=== PATIENT | male | born 1945 | race Caucasian/White ===

== ENCOUNTER 2018-11-27 01:28 | Inpatient (IN) ==
--- OUTSIDE RECORDS SUMMARY | 2018-11-27 05:27 | External Medical Summary | Continuity of Care Document ---
:1945 Author Name Kristine Lopez, Provider Address Unavailable Unavailable , Care Team Providers Name Role Phone Unavailable Unavailable Unavailable Problems Arthritis (716.90) (M19.90) Hypercholesterolemia (272.0) (E78.00) Pure hypercholesterolemia (272.0) (E78.00) Testicular pain (608.9) (N50.819) Glaucoma (365.9) (H40.9) Hypertension (401.9) (I10) Post-void dribbling (788.35) (N39.43) Constipation (564.00) (K59.00) Benign localized prostatic hyperplasia w ith lower urinary tract symptoms (LUTS) (600.21) (N40.1) Gout (274.9) (M10.9) Allergies and Adverse Reactions Anti-Inflammatory Enzyme CAPS (Allergy) Reaction: Nausea predniSONE TABS (Allergy) Medications Flax Seed Oil CAPS , M.D. Refills: 0 Fish Oil CAPS , M.D. Refills: 0 Multiple Vitamins TABS , M.D. Refills: 0 Aspirin 81 MG TABS , M.D. Refills: 0 Lumigan SOLN , M.D. Refills: 0 Lopressor TABS , M.D. Refills: 0 Protonix 20 MG Oral Tablet Delayed Release , M.D. Refills: 0 Lipitor TABS , M.D. Refills: 0 Cymbalta 60 MG Oral Capsule Delayed Release Particles , M.D. Refills: 0 Procedures History of Colostomy Status: Completed History of Colostomy Revision Status: Co mpleted History of Hemorrhoidectomy Status: Comp leted History of Incisional Hernia Repair Stat us: Completed History of Surgery Excision Of Spermatocele With Epididymect juan Status: Completed History of Surgery Scrotum Excision Of Lesion Status: Completed History of Laser Vaporization With Transurethral Resection O f Status: Completed Prostate History of Surgery Vas Deferens Vasectomy Status: Completed History of CABG Status: Completed History of PTCA Status: Completed Immunizations Immunizations not documented Family History Unknown Family Member Family history of Cancer Status: Active Comments: Famil y History Family history of Nephrolithiasis Status: Active Commen ts: Family History Family history of Hypertension (V17.49) Status: Active Comments: Family History Family history of Heart Disease (V17.49) Status: Active Comments: Family History Social History - Smoking Status Smoker. current status unknown Plan of Treatment Planned Observations Planned Goals not documented Results No Known Results Results not documented
[2018-11-27] MEDS ORDERED: ACETAMINOPHEN 325 MG TAB PO PRN (05:57)
[2018-11-27] MEDS ORDERED: MULTI-VITAMIN INFUSION 10 ML, THIAMINE HCL 100 MG, FOLIC ACID 1 MG in SODIUM CHLORIDE 0... IV SCH (06:45)
[2018-11-27 06:46] LABS: Appearance Urine Clear (Clear); Bilirubin Urine Negative (Negative); Color Urine Yellow; Glucose Urine UA Negative (Negative); Ketones Urine Negative (Negative); Leukocyte Esterase Urine Negative (Negative); Nitrite Urine Negative (Negative); Protein Urine Negative (Negative); Specific Gravity Urine 1.021 (1.000-1.030); Urobilinogen Urine Negative (Negative)
[2018-11-27 06:53] LABS: Basophils % (auto) 0.8 %; Eosinophils # (auto) 0.04 K/uL (0-0.5); Eosinophils % (auto) 0.3 %; Hematocrit (blood only) 35.4 % (42-52); Hemoglobin 12.3 g/dL (14.0-18.0); Immature Granulocytes # (auto) 0.21 K/uL (0.00-0.02); Immature Granulocytes % (auto) 1.8 %; Lymphocytes # (auto) 0.77 K/uL (1.2-3.4); Lymphocytes % (auto) 6.4 %; Mean Corpuscular Hgb Conc 34.7 g/dL (32-36); Mean Corpuscular Volume 96.5 fL (80-100); Mean Platelet Volume 9.5 fL (7.4-10.4); Monocytes # (auto) 0.91 K/uL (0.11-0.59); Monocytes % (auto) 7.6 %; Neutrophils # (auto) 9.97 K/uL (1.4-6.5); Neutrophils % (auto) 83.1 %; Platelet Count 317 K/uL (130-400); RDW Coefficient of Variation 16.2 % (11.5-14.5); RDW Standard Deviation 56.2 fL (36.4-46.3); Red Blood Count 3.67 M/uL (4.7-6.1)
[2018-11-27 07:03] LABS: Prothrombin Time 10.6 Seconds (9.0-12.0)
[2018-11-27] MEDS: MoRPHine SULFATE 4 MG/ML 1 ML CARP\\VIAL IV PRN ×2 (07:08→23:32)
--- NOTE | 2018-11-27 07:11 | XRay Report ---
XR hip RT 2-3V w pelvis CLINICAL HISTORY: hip fracture. Right hip pain. COMPARISON STUDY: None. FINDINGS: Comminuted and displaced right femoral intertrochanteric fracture. No dislocation. The visu alized pelvic bones and left hip are intact. Posterior fusion hardware noted within the lower lumbar spine. IMPRESSION: Comminuted and displaced right femoral intertrochanteric fracture. Electronically signed by: Ubaldo Calderon M.D. 11/27/2018 7:10 AM
[2018-11-27] MEDS: METOPROLOL TARTRATE 50 MG TAB PO SCH ×2 (07:14→19:38)
[2018-11-27] MEDS: ATORVASTATIN 20 MG TAB PO SCH ×2 (07:14→19:39)
[2018-11-27] MEDS: PANTOprazole 40 MG TAB PO SCH ×2 (07:14→19:40)
--- NOTE | 2018-11-27 07:25 | History & Physical Report ---
Date of Service November 27, 2018 Assessment & Plan (1) Hip fracture: 73 y/o M Hx RA, CAD, HTN, HLD, smoker, alcohol abuse. Pt suffered a mechanical fall onto his R side sustaining an intertrochanteric fracture. He was initially at [facility], however, they do not currently have an orthopedic ser vice so that he was transferred to [facility]. He c/o hip pain on arrival. He denies symptoms or intoxication preceding his fall. 1) Hip fracture - orthopedics consulted - analgesics provided, IVF, NPO. The pt is technically high-risk for surgery although he underwent a procedure 11/2017. I do not believe he merits additional cardiovascular workup at present. A baseline EKG is pending. 2) CAD - no evidence of ACS - cont B david Statin 3) RA - unclear if this iis treated presently 4) Suspected ETOH abuse - denies prior withdrawal 5) HTN/HLD - Atorvastatin, Metoprolol. Present on Admission?: Yes History of Present Illness Chief Complaint: R hip fracture Primary Care Provider: Dhruv Howe 73 y/o M Hx RA, CAD, HTN, HLD, smoker, alcohol abuse. Pt suffered a mechanical fall onto his R side sustaining an intertrochanteric fracture. He was initially at [facility], however, they do not currently have an orthopedic service so that he was transferred to [facility]. He c/o hip pain on arrival. He denies symptoms or intoxication preceding his fall. 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 Surgical: 1) L total shoulder 2017 2) Multiple abdominal surgeries and a colostomy 3) CABG Social: Reports over 3 drinks per day, smokes 1 pack daily Family: Adopted/unknown Allergies Allergy/AdvReac Type Severity Reaction Status Date / Time No Known Allergies Allergy Unverified 12/13/17 12:32 Home Medications Home Medications Medication Instructions Recorded Confirmed Type BIMATOPROST (LUMIGAN) 1 drp OPHTHALMIC (EYE) HS 30 Days 10/28/17 11/27/18 History #2.5 ml Metoprolol Tartrate (Lopressor) 50 mg PO BID #0 tab 10/28/17 11/27/18 History (Lopressor) Pantoprazole (Protonix) 40 mg PO BID #0 tab 10/28/17 11/27/18 History OXYCODONE/ACETAMINOPHEN 5MG/325MG 1 - 2 tabs PO Q4H PRN #60 tab 12/14/17 11/27/18 Rx (PERCOCET 5MG/325MG) atorvastatin 20 mg PO DAILY 11/27/18 11/27/18 History Past Med/Surg History Social History Preferred Language: Swazi Communication Ability: Effective 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 Beliefs That Will Affect Care: None Current Living Situation: Spouse Current Living Situation Comment: House Feels Safe at Home: Hesitant to Answer Safety Concerns: Afraid for Self Smoking Status: Current every day smoker Tobacco Type: cigarettes Cigarettes Per Day: 20 Do You Dip or Chew Tobacco: No Second Hand Exposure: No Hx Alcohol Use: Yes Alcohol type: hard liquor Hx Substance Use: No Review of Systems Review of Systems: Gen: Denies fevers, night sweats, rigors, fatigue, malaise, weight loss/gain ENT: Denies congestion, throat pain, hearing loss Eyes: Denies acute visual changes CV: Denies CP, palpitations Pulmonary: Denies SOB, cough, wheezing GI: Denies N/V, diarrhea, constipation Neuro: Denies acute or unilateral weakness, acute gait impairment, headache or acute visual changes Musculoskeletal: R hip rangel as above Endocrine: Denies polydipsia, polyuria Skin: Denies acute rashes or ulcers Physical Exam Physical Exam: General: AAO x 3, no distress ENT: No erythema or exudates, no thrush Eyes: RACHID, EOMI Head and neck: Normocephalic, atraumatic, No JVD, neck is supple. Chest/heart: Nontender, S1,2, RRR, no murmurs, no gallops Lungs: CTAB, no wheezing or crackles Abdomen: Nontender, nondistended, BS+ Neuro: AAO x 3, speech is clear, no unilateral weakness or loss of sensation, coordination intact Musculoskeletal: Shortened/externally rotated RLL Skin: No acute rashes or ulcers Extremities: No clubbing, cyanosis, edema Results & Data Vital Signs (Past 12 Hours) Vital Signs Temp Pulse Pulse Pulse Resp BP Pulse Ox 11/27/18 06:29 97.3 F L 84 18 152/86 H 96 11/27/18 05:48 85 11/27/18 05:37 97.3 F L 85 18 147/88 H 95 Pulse Ox 11/27/18 06:29 96 11/27/18 05:48 11/27/18 05:37
[2018-11-27] MEDS ORDERED: BISACODYL 10 MG SUPP PR PRN ×2 (07:26→14:59)
[2018-11-27] MEDS ORDERED: NALOXONE HCL 0.4 MG/1 ML VIAL/CARP IV PRN ×2 (07:26→14:59)
[2018-11-27] MEDS ORDERED: MAGNESIUM HYDROXIDE SUSP 30 ML UDC PO PRN ×2 (07:26→14:59)
[2018-11-27 07:29] LABS: Albumin Level 2.9 gm/dl (3.4-5.0); BUN Creatinine Ratio 22.2 (10-20); Calcium 8.2 mg/dl (8.5-10.1); Creatinine Clr Calc Pharmacy 136.5 ml/min; Est GFR (African American) 127.4; Est GFR (Non-African American) 109.9; Potassium 3.7 mmol/L (3.5-5.1)
[2018-11-27 07:32] LABS: Albumin Globulin Ratio 0.8 (0.9-2); Bilirubin,Total 0.4 mg/dl (0.2-1); Globulin 3.5 gm/dl (2.5-4.0); Total Protein 6.4 gm/dl (6.4-8.2)
[2018-11-27] MEDS ORDERED: D5W AND LACTATED RINGERS 1,000 ML IV SCH (07:45)
[2018-11-27] MEDS ORDERED: LORazepam 1 MG/2 ML VIAL IV PRN (08:50)
--- NOTE | 2018-11-27 08:50 | Orthopedic Consultation ---
Date of Consultation November 27, 2018 Assessment & Plan (1) Hip fracture: npo. Plan for long IM nailing of right hip/femur today with Dr. Sinclair. Procedure explained including risk and benefits to surgery. Consent obtained. This was discussed with his Venita as well. History of Present Illness Reason for Consultation: Right hip pain, fracture Attending Physician: Addy Magaña MD History of Present Illness Flaquito is a 73 y/o male transferred from [facility] with a right intertroch fx. He fell yesterday, landing on his right side. He's unsure exactly how or why but did say he gets dizzy at times. He had some preexisting hip/leg pain as he has a history of RA. No other m/s complaints at this time. PMH reviewed and please refer to H & P. Allergies Allergy/AdvReac Type Severity Reaction Status Date / Time No Known Allergies Allergy Unverified 12/13/17 12:32 Home Medications Home Medications Medication Instructions Recorded Confirmed Type BIMATOPROST (LUMIGAN) 1 drp OPHTHALMIC (EYE) HS 30 Days 10/28/17 11/27/18 History #2.5 ml Metoprolol Tartrate (Lopressor) 50 mg PO BID #0 tab 10/28/17 11/27/18 History (Lopressor) Pantoprazole (Protonix) 40 mg PO BID #0 tab 10/28/17 11/27/18 History OXYCODONE/ACETAMINOPHEN 5MG/325MG 1 - 2 tabs PO Q4H PRN #60 tab 12/14/17 11/27/18 Rx (PERCOCET 5MG/325MG) atorvastatin 20 mg PO DAILY 11/27/18 11/27/18 History Patient History Social History Preferred Language: Qatari Communication Ability: Effective 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 He was confused as to which day of the week it is. No pain with ROM of BUE. He has some pain with motion of left leg/hip but has had this before from RA and no change. RLE is shortened and externally rotated. NVI. DF/PF appropriately. Results & Data Vital Signs (Past 12 Hours) Vital Signs Temp Pulse Pulse Pulse Resp BP Pulse Ox 11/27/18 07:17 93 H 18 159/86 H 96 11/27/18 06:29 36.3 C L 84 18 152/86 H 96 11/27/18 05:48 85 11/27/18 05:37 36.3 C L 85 18 147/88 H 95 Pulse Ox 11/27/18 07:17 11/27/18 06:29 96 11/27/18 05:48 11/27/18 05:37 Diagnostic Findings xrays show comminuted displaced intertroch fx of right hip
--- NOTE | 2018-11-27 11:51 | Anesthesiology Consultation ---
Date of Service November 27, 2018 Assessment & Plan Chart Review Chart Review: Acceptable Risk for Surgery Consults Requested none History Surgery Operation Date: 11/27/18 12:30 Proposed Procedures p Right Long Troch Nail - Johnny Sinclair MD Height/Weight Height: 5 ft 9 in Weight: 69.8 kg Allergies Allergy/AdvReac Type Severity Reaction Status Date / Time No Known Allergies Allergy Unverified 12/13/17 12:32 Medications Home Medications Medication Instructions Recorded Confirmed Last Taken BIMATOPROST (LUMIGAN) 1 drp OPHTHALMIC (EYE) HS 30 Days 10/28/17 11/27/18 Unknown #2.5 ml Metoprolol Tartrate (Lopressor) 50 mg PO BID #0 tab 10/28/17 11/27/18 Unknown (Lopressor) Pantoprazole (Protonix) 40 mg PO BID #0 tab 10/28/17 11/27/18 Unknown OXYCODONE/ACETAMINOPHEN 5MG/325MG 1 - 2 tabs PO Q4H PRN #60 tab 12/14/17 11/27/18 Unknown (PERCOCET 5MG/325MG) atorvastatin 20 mg PO DAILY 11/27/18 11/27/18 Unknown Active Medications Generic Name Dose Route Start Last Admin Trade Name Freq PRN Reason Stop Dose Admin Atorvastatin Calcium 20 mg 11/27/18 09:00 11/27/18 07:14 Lipitor PO 12/27/18 08:59 20 mg DAILY BECCA Administration Dextrose/Lactated Ringer's 1,000 mls @ 80 mls/hr 11/27/18 07:45 11/27/18 09:21 D5w And Lactated Ringers IV 11/27/18 20:14 80 mls/hr .[id number] BECCA Administration Metoprolol Tartrate 50 mg 11/27/18 09:00 11/27/18 07:14 Lopressor PO 12/27/18 08:59 50 mg BID BECCA Administration Morphine Sulfate 4 mg 11/27/18 06:15 11/27/18 07:08 Morphine Sulfate IV 12/11/18 06:14 4 mg Q4H PRN Administration Pain Pantoprazole Sodium 40 mg 11/27/18 09:00 11/27/18 07:14 Protonix PO 12/27/18 08:59 40 mg BID BECCA Administration NPO Date Last Intake of Fluids: 11/27/18 Time Last Intake of Fluids: 07:00 Last Intake of Fluids Comment: sips with medications Social History Smoking Status: Current every day smoker tobacco type: cigarettes Smoking cigarettes per day: 20 Do You Dip or Chew Tobacco: No Hx Alcohol Use: Yes Alcohol type: hard liquor alcohol intake frequency: 3 or more drinks per day Alcohol Intake Frequency Comment: 5 rum drinks per day Hx Substance Use: No Physical Exam Vital Signs Last Vital Signs Temp 36.9 C 11/27/18 10:28 Pulse 71 11/27/18 10:28 Resp 16 11/27/18 10:28 BP 176/95 H 11/27/18 10:28 Pulse Ox 96 11/27/18 10:28
[2018-11-27] MEDS ORDERED: CEFAZOLIN 2000MG 2,000 MG/15 ML SYR IV ONE (11:56)
[2018-11-27] MEDS ORDERED: ePHEDrine sulfate 50 MG/ML AMP IV PRN (11:58)
[2018-11-27] MEDS ORDERED: ATROPINE SULFATE 0.1 MG/ML 10ML SYR IV PRN (11:58)
[2018-11-27] MEDS ORDERED: MIDAZOLAM HCL 1 MG/ML 2ML VIAL ONE (11:58)
[2018-11-27] MEDS ORDERED: CEFAZOLIN 2,000 MG/15 ML IV PUSH IV ONE (11:58)
[2018-11-27] MEDS ORDERED: LIDOCAINE HCL 2% 2 ML VIAL/AMP(20MG/ML) INFIL ONE (11:58)
[2018-11-27] MEDS ORDERED: ONDANSETRON INJ 2 MG/ML 2 ML VIAL ONE (11:58)
[2018-11-27] MEDS ORDERED: fentaNYL citrate 100 MCG/2 ML VIAL IV PRN (11:58)
[2018-11-27] MEDS ORDERED: DEXAMETHASONE SOD INJ 4 MG/ML VIAL IV PRN (11:58)
[2018-11-27] MEDS ORDERED: ONDANSETRON INJ 2 MG/ML 2 ML VIAL IV PRN ×2 (11:58→14:59)
[2018-11-27] MEDS ORDERED: PROPOFOL IV EMULSION 10 MG/ML 20 ML VIAL IV ONE (11:58)
[2018-11-27] MEDS ORDERED: fentaNYL citrate 100 MCG/2 ML VIAL ONE ×2 (11:58→12:47)
[2018-11-27] MEDS ORDERED: HYDROmorphone INJ 2 MG/ML SYR/VIAL IV PRN (11:58)
[2018-11-27] MEDS ORDERED: BUPIVACAINE/EPINEPHRINE 0.5% MPF 1:200,000 30 ML VIAL ONE (12:01)
--- NOTE | 2018-11-27 12:10 | History & Physical Bridge Note ---
Date of Service November 27, 2018 History & Physical Bridge Note I have examined the patient, reviewed the History & Physical and in the interval since the performance of the History & Physical I have noted the following changes of clinical significance: no changes noted
[2018-11-27] MEDS ORDERED: DEXAMETHASONE SOD INJ 4 MG/ML VIAL ONE (12:38)
[2018-11-27] MEDS ORDERED: LARYING-O-JET KIT (LTA) ONE (12:38)
[2018-11-27] MEDS ORDERED: ROCURONIUM BROMIDE 10 MG/ML 5 ML VIAL ONE (12:38)
[2018-11-27] MEDS ORDERED: ePHEDrine sulfate 50 MG/ML SYR ONE (13:02)
[2018-11-27] MEDS ORDERED: PHENYLEPHRINE 100MCG/ML 5ML SYR ONE (13:02)
[2018-11-27] MEDS ORDERED: NEOSTIGMINE METHYLSULFATE 5 MG/5 ML SYR ONE (13:07)
[2018-11-27] MEDS ORDERED: GLYCOPYRROLATE 0.2 MG/ML VIAL ONE (13:07)
--- NOTE | 2018-11-27 13:21 | Post Operative Brief Note ---
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
--- NOTE | 2018-11-27 13:26 | Fluoroscopy Report ---
FL femur RT 2V CLINICAL HISTORY: RIGHT TROCH NAIL COMPARISON STUDY: 11/27/2018 FLUOROSCOPY TIME: 62 seconds. NUMBER OF FLUOROSCOPIC IMAGES: 4 FINDINGS: 4 intraoperative fluoroscopic spot images demonstrate internal fixation of an intertrochant darryl right hip fracture with a femoral neck nail and interlocking intramedullary roger. The lesser troc hanteric fragment is mildly displaced. IMPRESSION: Intraoperative fluoroscopic spot images demonstrating an internally fixated intertrochan teric right hip fracture Electronically signed by: Coy Cabrera M.D. 11/27/2018 1:24 PM
--- NOTE | 2018-11-27 14:11 | Anesthesiology Progress Note ---
Date of Service November 27, 2018 Anesthesia Post Procedure Vital Signs Vital Signs: Temp Pulse Pulse Pulse Resp BP BP 11/27/18 14:05 36.5 C 86 18 166/87 H 11/27/18 13:55 87 18 146/98 H 11/27/18 13:45 89 20 168/96 H 11/27/18 13:35 92 H 20 170/107 H 11/27/18 13:28 36.0 C L 89 20 175/102 H 11/27/18 10:28 36.9 C 71 16 176/95 H 11/27/18 07:17 93 H 18 159/86 H 11/27/18 06:29 36.3 C L 84 18 152/86 H 11/27/18 05:48 85 11/27/18 05:37 36.3 C L 85 18 147/88 H Pulse Ox Pulse Ox 11/27/18 14:05 95 11/27/18 13:55 96 11/27/18 13:45 98 11/27/18 13:35 99 11/27/18 13:28 99 11/27/18 10:28 96 11/27/18 07:17 96 11/27/18 06:29 96 96 11/27/18 05:48 11/27/18 05:37 95 Pain Intensity Right Leg: Pain Intensity: 9 Transfer of Care Handoff Completed per policy Notes Mental Status: alert / awake / arousable and participated in evaluation Patient Amnestic to Procedure: Yes Nausea / Vomiting: adequately controlled Pain: adequately controlled Airway Patency, RR, SpO2: stable & adequate BP & HR: stable & adequate Hydration State: stable & adequate Anesthetic Complications: no major complications apparent
[2018-11-27] MEDS ORDERED: HYDROmorphone INJ 0.5 MG/0.5 ML SYR IV PRN (14:59)
[2018-11-27] MEDS ORDERED: OXYCODONE HCL IR 5 MG TAB (IMMEDIATE RELEASE) PO PRN (14:59)
--- NOTE | 2018-11-27 15:10 | Operative Report ---
DATE OF OPERATION: 11/27/2018 SURGEON: Johnny Sinclair MD MECHANICAL ADJUSTER: JERRY Goodrich PREOPERATIVE DIAGNOSIS: Right displaced comminuted intertrochanteric hip fracture. POSTOPERATIVE DIAGNOSIS: Right displaced comminuted intertrochanteric hip fracture. PROCEDURE PERFORMED: Right long cephalomedullary nailing of a right intertrochanteric hip fracture. COMPLICATIONS: None. ESTIMATED BLOOD LOSS: 25 mL. FLUID REPLACEMENT: 700 mL crystalloid fluid replacement. ANESTHESIA: General. SPECIMENS: None. OPERATIVE INDICATIONS: The patient is a 73-year-old gentleman with multiple comorbidities including underlying rheumatoid disease, who sustained a fall yesterday. The exact mechanism was not quite clear. He says he just fell. He had acute onset of pain and could not walk, previously taken to [facility] and then transferred here for orthopedic care. The patient was admitted by the hospitalist service, medically optimized and indicated for surgical management. OPERATIVE IMPLANTS: Operative implants consisted of: 1. A Synthes right 360 mm x 11 mm long trochanteric nail. 2. A 100 mm helical blade. 3. A 5.0 x 46 mm distal interlocking screw. OPERATIVE PROCEDURE: The patient was taken to the operating room, identified and placed on the operative table in supine position. All contact areas were appropriately padded. IV antibiotics were provided by anesthesia team. General anesthetic was implemented at the patient's request. The patient was then placed on the fracture table. The right leg was placed in boot traction and the left leg was placed in a well-leg ramsey. I applied some longitudinal traction to the right leg and internally rotated the foot, so the kneecap pointed to the ceiling. X-ray was brought in. Fracture was anatomically reduced. The right hip was then scrubbed with Hibiclens and then prepped with ChloraPrep and draped in usual sterile fashion. A slightly curvilinear incision was made just proximal to tip of the trochanter. Sharp dissection was carried through subcutaneous tissues down to the level of the gluteal fascia. The gluteal fascia was incised longitudinally in line with skin incision. I then placed the guidewire just lateral to the tip of trochanter and in line with the IM canal in both the AP and lateral planes. I advanced this down the canal under fluoroscopic guidance. Position was verified. I overreamed this with a 17 mm reamer. I then removed this guidewire. A ball-tipped guidewire was placed down the IM canal. Nail length was measured and a 360 mm nail was selected. I did ream over the guidewire with a 12 mm followed by a 12.5 mm reamer which did get cortical purchase. I then placed an 11 mm x 360 mm right long trochanteric nail over the guidewire and the guidewire was removed. I tapped this into position. The lateral aiming arm was attached. A stab incision was made and the lateral aiming arm was advanced to the lateral aspect of the femur. A guidewire was placed in the central aspect of the femoral head and neck in both the AP and lateral planes under fluoroscopic guidance. I then measured and a 100 mm helical blade was selected. The cortical drill was used to breach the cortex and a triple reamer was set at 100 and the guidewire was overreamed. A 100 mm helical blade was tapped into position. The proximal set screw was tightened and then we did remove the proximal aiming device. Attention was then drawn toward distal fixation. Using the perfect kaw technique, we passed a screw through the distal interlocking hole. Perfect circles were obtained. A stab incision was made. A drill bit was then used to create the hole and a 46 mm x 5.0 mm screw was placed in the distal aspect of the dynamic interlocking hole. Some final x-rays were obtained. Attention was then drawn toward closing. All wounds were irrigated with copious amounts of normal saline. I did inject with 30 mL of 0.5% Marcaine with epinephrine. The gluteal fascia was then closed with #1 Vicryl suture in running fashion. The subcutaneous tissues of all wounds were closed with #2 Dexon suture in a buried interrupted fashion. Skin was then closed with skin tucker. Leg was then cleaned, dried and a sterile dressing of Xeroform, 4 x 4's, sterile ABD pad and foam tape was applied. The patient then taken off of fracture table and put on the transfer cart. He was brought out of general anesthesia and transferred to the recovery room in stable condition. The patient tolerated the procedure well with no complications. All needle and sponge counts were correct at the end of the operation. I attest to the content of the Intraoperative Record and any orders documented therein. Any exception s are noted below.
--- NOTE | 2018-11-27 19:32 | History & Physical Bridge Note ---
Date of Service November 27, 2018 History & Physical Bridge Note I have examined the patient, reviewed the History & Physical and in the interval since the performance of the History & Physical I have noted the following changes of clinical significance: Pt had hip repair. Seen afterwards. He is having pain in the right groin. Denies chest pain or SOB. Reports he drinks 4-5 mixed liquor drinks nightly each with 2 oz of liquor. Denies a h/o alcohol withdrawal previously and has gone months without drinking in the past. No h/o seizures. NAD, AAOx3 RRR no mgr CTAB no wcr Rt hip with dressing in place 2+ DP pulses bilat Right hip fracture, EtOH abuse, h/o CAD s/p CABG, HTN, DM -continue current care -ativan prn withdrawal, banana bag daily x 3 days -continue ASA, statin,metoprolol for CAD, watch for signs of perioperative CA
[2018-11-27] MEDS: ASPIRIN 81 MG ECTAB PO SCH (19:39)
[2018-11-27] MEDS: SENNA 8.6 MG TAB PO SCH ×2 (19:39→19:49)
[2018-11-27] MEDS: DOCUSATE SODIUM/SENNA 50/8.6MG TAB PO SCH ×2 (19:40→19:49)
[2018-11-27] MEDS: OXYCODONE HCL IR 5 MG TAB (IMMEDIATE RELEASE) PO PRN (19:47)
[2018-11-27] MEDS: CEFAZOLIN 1000MG 1,000 MG/7.5 ML SYR IV SCH (22:11)
[2018-11-28] MEDS: OXYCODONE HCL IR 5 MG TAB (IMMEDIATE RELEASE) PO PRN ×5 (02:58→20:52)
[2018-11-28] MEDS: CEFAZOLIN 1000MG 1,000 MG/7.5 ML SYR IV SCH (05:56)
[2018-11-28 06:23] LABS: Basophils # (auto) 0.05 K/uL (0-0.2); Basophils % (auto) 0.3 %; Eosinophils # (auto) 0.05 K/uL (0-0.5); Eosinophils % (auto) 0.3 %; Hematocrit (blood only) 33.9 % (42-52); Hemoglobin 11.1 g/dL (14.0-18.0); Immature Granulocytes # (auto) 0.11 K/uL (0.00-0.02); Immature Granulocytes % (auto) 0.7 %; Lymphocytes # (auto) 1.02 K/uL (1.2-3.4); Lymphocytes % (auto) 6.9 %; Mean Corpuscular Hgb Conc 32.7 g/dL (32-36); Mean Corpuscular Volume 99.7 fL (80-100); Mean Platelet Volume 10.2 fL (7.4-10.4); Monocytes # (auto) 1.12 K/uL (0.11-0.59); Monocytes % (auto) 7.6 %; Neutrophils # (auto) 12.41 K/uL (1.4-6.5); Neutrophils % (auto) 84.2 %; Platelet Count 287 K/uL (130-400); RDW Coefficient of Variation 16.4 % (11.5-14.5); RDW Standard Deviation 58.4 fL (36.4-46.3); White Blood Count 14.76 K/uL (4.8-10.8)
[2018-11-28 06:52] LABS: BUN Creatinine Ratio 14.7 (10-20); Calcium 8.3 mg/dl (8.5-10.1); Creatinine Clr Calc Pharmacy 107.5 ml/min; Est GFR (African American) 114.9; Est GFR (Non-African American) 99.1; Potassium 3.9 mmol/L (3.5-5.1)
[2018-11-28] MEDS: METOPROLOL TARTRATE 50 MG TAB PO SCH ×2 (07:58→20:50)
[2018-11-28] MEDS: PANTOprazole 40 MG TAB PO SCH ×2 (07:58→20:53)
[2018-11-28] MEDS: ASPIRIN 81 MG ECTAB PO SCH ×2 (07:59→20:54)
--- NOTE | 2018-11-28 08:16 | Progress Note ---
DATE: 11/28/2018 SUBJECTIVE: A 73-year-old gentleman with underlying rheumatoid disease, postop day 1 from IM nailing of a right intertrochanteric fracture. He seems to be doing okay. Pain seems to be controlled. He is anxious to get out of the hospital. When I said good morning to him this morning, he said "it is not a good morning." He wants to go home. No new complaints. He describes diffuse muscle aches that he has had for years. Right hip pain seems to be improved. OBJECTIVE: VITAL SIGNS: Temperature 36.8. Vital signs stable. GENERAL: On physical examination, this is an elderly male. He is sitting up in bed and eating his breakfast. He looks comfortable. EXTREMITIES: Examination of the right hip and leg reveals the dressing to be clean, dry, and intact. Leg is well aligned. Thigh is soft and supple. NEUROLOGIC: He is neurologically intact. LABORATORY DATA: Hemoglobin is 11.1. Hematocrit 33.9. Electrolytes are stable. ASSESSMENT: A 73-year-old gentleman with underlying rheumatoid disease, postop day 1 from IM nailing of a right intertrochanteric fracture. Orthopedically seems to be doing well. PLAN: 1. DVT prophylaxis including thigh-high TEDs, SCDs, and we would recommend a baby aspirin twice a day for 6 weeks. I do think this patient is a significant fall risk. 2. PT/OT. Weight bear as tolerated. He can fully weightbear on the right leg as he can tolerate. 3. Medical management as per the medicine service. 4. Pain control, seems to be doing well with current pain regimen. 5. Disposition. We did talk about a rehab stay. I think it would be best for him to go to rehab. He is pretty adamant about going home. We will have social service technician to see him and start planning discharge. He is orthopedically okay to discharge any time. I need to see him back 2 weeks out from surgery. He can weightbear as tolerated in his right leg.
[2018-11-28] MEDS ORDERED: MULTI-VITAMIN INFUSION 10 ML, THIAMINE HCL 100 MG, FOLIC ACID 1 MG in SODIUM CHLORIDE 0... IV SCH (09:00)
--- NOTE | 2018-11-28 09:33 | Anesthesiology Progress Note ---
Date of Service November 28, 2018 Anesthesia Post Procedure Vital Signs Vital Signs: Temp Pulse Pulse Resp BP BP Pulse Ox 11/28/18 07:43 36.8 C 80 22 121/67 92 11/28/18 06:28 11/28/18 04:00 11/28/18 02:48 36.9 C 74 17 125/70 93 11/28/18 00:00 11/27/18 23:34 36.8 C 88 20 132/68 92 11/27/18 22:47 84 11/27/18 22:00 81 19 132/70 94 11/27/18 19:36 36.7 C 80 18 143/81 H 94 11/27/18 18:30 37.0 C 80 16 145/80 H 95 11/27/18 18:00 37.1 C 77 16 137/78 95 11/27/18 17:30 36.9 C 73 16 137/83 94 11/27/18 17:00 37.0 C 84 18 149/90 H 94 11/27/18 16:45 37.0 C 86 16 155/93 H 95 11/27/18 16:30 37.1 C 74 16 138/75 94 11/27/18 15:05 36.8 C 73 18 161/87 H 96 11/27/18 14:50 78 18 154/87 H 96 11/27/18 14:34 73 20 151/68 H 96 11/27/18 14:20 36.7 C 74 20 153/90 H 95 11/27/18 14:15 87 18 159/98 H 93 11/27/18 14:05 36.5 C 86 18 166/87 H 95 11/27/18 13:55 87 18 146/98 H 96 11/27/18 13:45 89 20 168/96 H 98 11/27/18 13:35 92 H 20 170/107 H 99 11/27/18 13:28 36.0 C L 89 20 175/102 H 99 11/27/18 10:28 36.9 C 71 16 176/95 H 96 Pulse Ox 11/28/18 07:43 11/28/18 06:28 90 11/28/18 04:00 91 11/28/18 02:48 11/28/18 00:00 94 11/27/18 23:34 11/27/18 22:47 11/27/18 22:00 11/27/18 19:36 11/27/18 18:30 11/27/18 18:00 11/27/18 17:30 11/27/18 17:00 11/27/18 16:45 11/27/18 16:30 11/27/18 15:05 11/27/18 14:50 11/27/18 14:34 11/27/18 14:20 11/27/18 14:15 11/27/18 14:05 11/27/18 13:55 11/27/18 13:45 11/27/18 13:35 11/27/18 13:28 11/27/18 10:28 Pain Intensity Right Leg: Pain Intensity: 7 Notes Mental Status: alert / awake / arousable Patient Amnestic to Procedure: Yes Nausea / Vomiting: adequately controlled Pain: improving with treatment Airway Patency, RR, SpO2: stable & adequate BP & HR: stable & adequate Hydration State: stable & adequate Anesthetic Complications: no major complications apparent
[2018-11-28] MEDS: MoRPHine SULFATE 4 MG/ML 1 ML CARP\\VIAL IV PRN ×2 (14:31→23:27)
--- NOTE | 2018-11-28 14:39 | Hospitalist Progress Note ---
Date of Service November 28, 2018 Assessment & Plan (1) Hip fracture: This patient is a 73 y/o male with a history of RA, CAD status post CABG, HTN, HLD, current smoker, GERD, and alcohol abuse. Pt suffered a mechanical fall onto his R side sustaining an intertrochanteric fracture. He was initially at [facility], however, they do not currently have an orthopedic service so that he was transferred to [facility]. Hip fracture -now status post ORIF on 11/27 by orthopedic surgery Orthopedic management appreciated -Continue pain control, bowel regimen DVT prophylaxis with aspirin 81 mg p.o. twice daily x6 weeks PT/OT consultations appreciated (2) HTN (hypertension), benign: Blood pressures well controlled -Continue metoprolol tartrate 50 mill grams p.o. twice daily (3) Hyperlipidemia: With history of CAD -Continue atorvastatin 20 mg daily (4) CAD (coronary artery disease), [place] coronary artery: Status post CABG No evidence of ACS at this time -Continue aspirin, statin, metoprolol -Watch for evidence of perioperative [place] (5) Status post coronary artery bypass graft: Noted as above (6) Alcohol abuse: Drinks 4-5 mixed drinks daily that each have 2 ounces of vodka. Denies history of previous withdrawal and reports he has stopped for couple months at a time in the past without history of seizures or delirium tremens. Currently has mild intermittent confusion which nursing thinks is more related to opioid use for pain control No other evidence of alcohol withdrawal at this time -Continue alcohol withdrawal scale for monitoring -Ativan as needed Banana bag daily x3 days-1 more tomorrow -Restart home folic acid 1 mg daily which is actually because he is on methotr exate -will then need multivitamin and thiamine supplementation after that as well (7) Rheumatoid arthritis: Follows with rheumatology -Holding methotrexate currently due to surgery -Takes chronic Percocet at home as needed for pain (8) Current smoker: Encouraged cessation -Does not need nicotine patch at this time but could be given (9) GERD (gastroesophageal reflux disease): Continue Protonix (10) DVT prophylaxis: Aspirin twice daily, SCDs Disposition-stable for transfer off of telemetry to medical/surgical unit Will likely need rehab placement but he seems reluctant to do so at this time Subjective Patient slightly confused today especially after getting pain medicine. He complains of right hip pain in the groin. Denies chest pain shortness of breath. He has a little bit restless and agitated at times but does know that he is in the hospital. Telemetry with normal sinus rhythm with rates in the 70s to 80s. Review of Systems 2 Review of Systems: All systems reviewed & are unremarkable except as noted in HPI & below Physical Exam Constitutional: WD/WN, vitals as above Eyes: PERRL, conjunctivae normal, anicteric sclerae ENMT: external ear and nose normal, oropharynx normal Neck: trachea midline, no thyromegaly Respiratory: normal respiratory effort, lungs clear to auscultation Cardiovascular: RRR, no murmur, no edema Gastrointestinal (Abdomen): normal bowel sounds, soft, nontender, no hepatosplenomegaly Musculoskeletal: Extremities: + extremities abnormal to inspection (Right hip with dressing over the lateral hip clean dry and intact, moving both lower extremities.), no cyanosis and no clubbing Skin: no rashes, warm and dry Neurologic: moves all extremities and awake; no focal motor deficits Psychiatric: A+Ox3, euthymic affect Genitourinary: no penis abnormality and no scrotum abnormality Results & Data Vital Signs (Past 12 Hours) Vital Signs Temp Pulse Resp BP Pulse Ox Pulse Ox 11/28/18 09:45 95 11/28/18 07:43 36.8 C 80 22 121/67 92 11/28/18 06:28 90 11/28/18 04:00 91 11/28/18 02:48 36.9 C 74 17 125/70 93 Laboratory Results 11/28/18 11/28/18 Range/Units 06:09 06:09 WBC 14.76 H (4.8-10.8) K/uL RBC 3.40 L (4.7-6.1) M/uL Hgb 11.1 L (14.0-18.0) g/dL Hct 33.9 L (42-52) % MCV 99.7 (80-100) fL MCH 32.6 (25-34) pg MCHC 32.7 (32-36) g/dL RDW Std Deviation 58.4 H (36.4-46.3) fL RDW Coeff of Seema 16.4 H (11.5-14.5) % Plt Count 287 (130-400) K/uL MPV 10.2 (7.4-10.4) fL Immature Gran % (Auto) 0.7 % Neut % (Auto) 84.2 % Lymph % (Auto) 6.9 % [place] % (Auto) 7.6 % Eos % (Auto) 0.3 % Baso % (Auto) 0.3 % Immature Gran # (Auto) 0.11 H (0.00-0.02) K/uL Neut # (Auto) 12.41 H (1.4-6.5) K/uL Lymph # (Auto) 1.02 L (1.2-3.4) K/uL [place] # (Auto) 1.12 H (0.11-0.59) K/uL Eos # (Auto) 0.05 (0-0.5) K/uL Baso # (Auto) 0.05 (0-0.2) K/uL Sodium 136 (136-145) mmol/L Potassium 3.9 (3.5-5.1) mmol/L Chloride 101 (98-107) mmol/L Carbon Dioxide 29 (21-32) mmol/L Anion Gap 6.0 (3-11) BUN 9 (7-18) mg/dl Creatinine 0.63 (0.6-1.4) mg/dl Est Cr Clr Drug Dosing 107.5 ml/min Est GFR ( Amer) 114.9 Est GFR (Non-Af Amer) 99.1 BUN/Creatinine Ratio 14.7 (10-20) Glucose 101 H (70-99) mg/dl Calcium 8.3 L (8.5-10.1) mg/dl
[2018-11-28] MEDS: SENNA 8.6 MG TAB PO SCH ×2 (20:53→21:02)
[2018-11-28] MEDS: DOCUSATE SODIUM/SENNA 50/8.6MG TAB PO SCH (20:53)
[2018-11-28] MEDS: BIMATOPROST 0.01% OP SOLN 2.5 ML BTL OP SCH (20:53)
[2018-11-28] MEDS ORDERED: BIMATOPROST 0.01% OP SOLN 2.5 ML BTL OP SCH (21:00)
[2018-11-29] MEDS: OXYCODONE HCL IR 5 MG TAB (IMMEDIATE RELEASE) PO PRN ×5 (02:24→21:52)
[2018-11-29 06:38] LABS: Basophils # (auto) 0.05 K/uL (0-0.2); Basophils % (auto) 0.5 %; Eosinophils # (auto) 0.15 K/uL (0-0.5); Eosinophils % (auto) 1.6 %; Hematocrit (blood only) 32.2 % (42-52); Hemoglobin 10.7 g/dL (14.0-18.0); Lymphocytes # (auto) 0.89 K/uL (1.2-3.4); Lymphocytes % (auto) 9.3 %; Mean Corpuscular Hgb Conc 33.2 g/dL (32-36); Mean Corpuscular Volume 99.1 fL (80-100); Mean Platelet Volume 10.4 fL (7.4-10.4); Monocytes # (auto) 0.83 K/uL (0.11-0.59); Monocytes % (auto) 8.7 %; Neutrophils # (auto) 7.57 K/uL (1.4-6.5); Neutrophils % (auto) 78.9 %; Platelet Count 260 K/uL (130-400); RDW Coefficient of Variation 16.1 % (11.5-14.5); RDW Standard Deviation 57.7 fL (36.4-46.3); Red Blood Count 3.25 M/uL (4.7-6.1); White Blood Count 9.59 K/uL (4.8-10.8)
[2018-11-29 07:22] LABS: BUN Creatinine Ratio 15.2 (10-20); Calcium 8.1 mg/dl (8.5-10.1); Creatinine Clr Calc Pharmacy 130.3 ml/min; Est GFR (African American) 124.3; Est GFR (Non-African American) 107.3; Potassium 3.3 mmol/L (3.5-5.1)
[2018-11-29] MEDS: ASPIRIN 81 MG ECTAB PO SCH ×2 (08:25→21:46)
[2018-11-29] MEDS: PANTOprazole 40 MG TAB PO SCH ×2 (08:25→21:43)
[2018-11-29] MEDS: ATORVASTATIN 20 MG TAB PO SCH (08:25)
[2018-11-29] MEDS: METOPROLOL TARTRATE 50 MG TAB PO SCH ×2 (08:25→21:45)
[2018-11-29] MEDS: FOLIC ACID 1 MG TAB PO SCH (08:30)
[2018-11-29] MEDS ORDERED: MULTI-VITAMIN INFUSION 10 ML, THIAMINE HCL 100 MG, FOLIC ACID 1 MG in SODIUM CHLORIDE 0... IV SCH (09:00)
[2018-11-29] MEDS ORDERED: POTASSIUM CHLORIDE 20 MEQ TABCR PO STA (09:30)
--- NOTE | 2018-11-29 10:11 | Progress Note ---
DATE: 11/29/2018 SUBJECTIVE: A 73-year-old gentleman postop day 2 from IM nailing of a right intertrochanteric fracture. Seems to be doing a little better today. Seems more pleasant, more optimistic. No new complaints. Some moderate hip pain. No chest pain or shortness of breath. OBJECTIVE: VITAL SIGNS: Temperature 36.5. Vital signs stable. GENERAL: Physical examination shows a relatively pleasant, middle-aged male. He seems to be in much better mood this morning. He is lying in bed. EXTREMITIES: Examination of the right hip reveals the dressing to be clean, dry and intact. His leg is well aligned. His thigh is soft and supple. He is neurologically intact. LABORATORY DATA: Hemoglobin 10.7. Hematocrit 32.2. ASSESSMENT: A 73-year-old gentleman postop day 2 from IM nailing of right intertrochanteric fracture, doing reasonably well. He has got underlying rheumatoid disease. Pain is reasonably well controlled. He is neurologically intact. PLAN: 1. DVT prophylaxis including thigh-high TEDs, SCDs, and we would recommend aspirin twice a day for 6 weeks. 2. PT/OT. Weight bear as tolerated in the right lower extremity. 3. Pain control. Seems to be doing pretty well with current pain regimen. 4. Medical management as per the medicine service. 5. Disposition: He is orthopedically okay for discharge any time. It is likely he will need a rehab stay. I need to see him back 2 weeks from surgery. Any orthopedic questions can be directed to me at [phone].
[2018-11-29] MEDS ORDERED: GUAIFENESIN/DEXTROM SYRUP 100MG/10MG 5ML UDC PO PRN (11:27)
--- NOTE | 2018-11-29 11:33 | Hospitalist Progress Note ---
Date of Service November 29, 2018 Assessment & Plan (1) Hip fracture: This patient is a 73 y/o male with a history of RA, CAD status post CABG, HTN, HLD, current smoker, GERD, and alcohol abuse. Pt suffered a mechanical fall onto his R side sustaining an intertrochanteric fracture. He was initially at [facility], however, they do not currently have an orthopedic service so that he was transferred to [facility]. Hip fracture -now status post ORIF on 11/27 by orthopedic surgery Orthopedic management appreciated Doing very well, is ambulating Postop hemoglobin down to 10.7 today and hemodynamically stable -Continue pain control, bowel regimen DVT prophylaxis with aspirin 81 mg p.o. twice daily x6 weeks PT/OT consultations appreciated- will need rehab placement (2) HTN (hypertension), benign: Blood pressures well controlled -Continue metoprolol tartrate 50 MG p.o. twice daily (3) Hyperlipidemia: With history of CAD -Continue atorvastatin 20 mg daily (4) CAD (coronary artery disease), [place] coronary artery: Status post CABG No evidence of ACS at this time -Continue aspirin, statin, metoprolol -Watch for evidence of perioperative [place]-none so far (5) Status post coronary artery bypass graft: Noted as above (6) Alcohol abuse: Drinks 4-5 mixed drinks daily that each have 2 ounces of vodka. Denies history of previous withdrawal and reports he has stopped for couple months at a time in the past without history of seizures or delirium tremens. Doing very well today Last drink was the evening of 11/26 No evidence of alcohol withdrawal at this time, has not required any Ativan -Continue alcohol withdrawal scale for monitoring -Ativan as needed Banana bag daily x3 days was given -Continue home folic acid 1 mg daily which is actually because he is on methotrexate -Start multivitamin and thiamine supplementation daily tomorrow (7) Rheumatoid arthritis: Follows with rheumatology -Holding methotrexate currently due to surgery -Takes chronic Percocet at home as needed for pain (8) Current smoker: Encouraged cessation -Ordered nicotine patch once daily for today as per his request (9) GERD (gastroesophageal reflux disease): Continue Protonix (10) Hypokalemia: Potassium mildly low today, had poor p.o. intake yesterday -Replace with potassium chloride 40 mill equivalents p.o. x1 -Follow BMP in the morning (11) DVT prophylaxis: Aspirin twice daily x6 weeks, SCDs Disposition-medically stable, orthopedics says he is stable for discharge at any point-awaiting insurance authorization which will not likely be until Saturday due to the holiday weekend. A referral has been made to [facility] in [place] and [facility] as a back-up. Also should stay for at least 1 more day to ensure no alcohol withdrawal but seems to be doing very well so far. Subjective Patient feeling better today, less pain in the hip. He ambulated which felt good. He denies chest pain or shortness of breath. He does have a cough and is bringing up a lot of sputum which she says is his chronic smoker's cough. He is requesting a nicotine patch. He is also requesting a "Captabraham Ifeanyi patch." Review of Systems Review of Systems: All systems reviewed & are unremarkable except as noted in HPI & below Physical Exam Constitutional: WD/WN, vitals as above Eyes: PERRL, conjunctivae normal, anicteric sclerae ENMT: external ear and nose normal, oropharynx normal Neck: trachea midline, no thyromegaly Respiratory: normal respiratory effort and + cough; no labored breathing Auscultation: + rhonchi (Scattered); no wheezes Cardiovascular: RRR, no murmur, no edema Gastrointestinal (Abdomen): normal bowel sounds, soft, nontender, no hepatosplenomegaly Musculoskeletal: Extremities: + extremities abnormal to inspection (Right hip with dressing over the lateral hip clean dry and intact, moving both lower extremities.), no cyanosis and no clubbing Skin: no rashes, warm and dry Neurologic: moves all extremities and awake; no focal motor deficits Psychiatric: A+Ox3, euthymic affect Genitourinary: no penis abnormality and no scrotum abnormality Results & Data Vital Signs (Past 12 Hours) Vital Signs Temp Pulse Resp BP BP Pulse Ox 11/29/18 07:12 36.5 C 66 16 124/74 93 11/29/18 04:00 36.4 C L 66 16 123/73 94 Laboratory Results 11/29/18 11/29/18 Range/Units 06:22 06:22 WBC 9.59 (4.8-10.8) K/uL RBC 3.25 L (4.7-6.1) M/uL Hgb 10.7 L (14.0-18.0) g/dL Hct 32.2 L (42-52) % MCV 99.1 (80-100) fL MCH 32.9 (25-34) pg MCHC 33.2 (32-36) g/dL RDW Std Deviation 57.7 H (36.4-46.3) fL RDW Coeff of Seema 16.1 H (11.5-14.5) % Plt Count 260 (130-400) K/uL MPV 10.4 (7.4-10.4) fL Immature Gran % (Auto) 1.0 % Neut % (Auto) 78.9 % Lymph % (Auto) 9.3 % [place] % (Auto) 8.7 % Eos % (Auto) 1.6 % Baso % (Auto) 0.5 % Immature Gran # (Auto) 0.10 H (0.00-0.02) K/uL Neut # (Auto) 7.57 H (1.4-6.5) K/uL Lymph # (Auto) 0.89 L (1.2-3.4) K/uL [place] # (Auto) 0.83 H (0.11-0.59) K/uL Eos # (Auto) 0.15 (0-0.5) K/uL Baso # (Auto) 0.05 (0-0.2) K/uL Sodium 133 L (136-145) mmol/L Potassium 3.3 L D (3.5-5.1) mmol/L Chloride 99 (98-107) mmol/L Carbon Dioxide 29 (21-32) mmol/L Anion Gap 5.0 (3-11) BUN 8 (7-18) mg/dl Creatinine 0.52 L (0.6-1.4) mg/dl Est Cr Clr Drug Dosing 130.3 ml/min Est GFR ( Amer) 124.3 Est GFR (Non-Af Amer) 107.3 BUN/Creatinine Ratio 15.2 (10-20) Glucose 118 H (70-99) mg/dl Calcium 8.1 L (8.5-10.1) mg/dl
[2018-11-29] MEDS: NICOTINE 21 MG/24 HR TDSY TD SCH (13:35)
[2018-11-29] MEDS: POLYETHYLENE (MIRALAX) 17 GM PACK PO SCH ×2 (17:34→23:20)
[2018-11-29] MEDS: SENNA 8.6 MG TAB PO SCH (21:44)
[2018-11-29] MEDS: BIMATOPROST 0.01% OP SOLN 2.5 ML BTL OP SCH (21:45)
[2018-11-29] MEDS: DOCUSATE SODIUM/SENNA 50/8.6MG TAB PO SCH (21:50)
[2018-11-30] MEDS: OXYCODONE HCL IR 5 MG TAB (IMMEDIATE RELEASE) PO PRN ×5 (03:24→20:48)
[2018-11-30] MEDS: POLYETHYLENE (MIRALAX) 17 GM PACK PO SCH (05:57)
[2018-11-30 07:03] LABS: Basophils # (auto) 0.08 K/uL (0-0.2); Basophils % (auto) 0.9 %; Eosinophils # (auto) 0.16 K/uL (0-0.5); Eosinophils % (auto) 1.8 %; Hematocrit (blood only) 32.6 % (42-52); Hemoglobin 10.9 g/dL (14.0-18.0); Immature Granulocytes # (auto) 0.25 K/uL (0.00-0.02); Immature Granulocytes % (auto) 2.8 %; Lymphocytes # (auto) 0.76 K/uL (1.2-3.4); Lymphocytes % (auto) 8.4 %; Mean Corpuscular Hgb Conc 33.4 g/dL (32-36); Mean Corpuscular Volume 98.2 fL (80-100); Mean Platelet Volume 10.4 fL (7.4-10.4); Monocytes # (auto) 0.82 K/uL (0.11-0.59); Neutrophils # (auto) 7.02 K/uL (1.4-6.5); Neutrophils % (auto) 77.1 %; Platelet Count 295 K/uL (130-400); Red Blood Count 3.32 M/uL (4.7-6.1); White Blood Count 9.09 K/uL (4.8-10.8)
[2018-11-30] MEDS: NICOTINE 21 MG/24 HR TDSY TD SCH (07:38)
[2018-11-30] MEDS: PANTOprazole 40 MG TAB PO SCH ×2 (07:38→20:48)
[2018-11-30] MEDS: ASPIRIN 81 MG ECTAB PO SCH ×2 (07:38→20:44)
[2018-11-30] MEDS: METOPROLOL TARTRATE 50 MG TAB PO SCH ×2 (07:38→20:45)
[2018-11-30] MEDS: THIAMINE HCL 100 MG TAB PO SCH (07:38)
[2018-11-30] MEDS: MULTIVITAMIN TAB PO SCH (07:38)
[2018-11-30] MEDS: FOLIC ACID 1 MG TAB PO SCH (07:38)
[2018-11-30] MEDS: ATORVASTATIN 20 MG TAB PO SCH (07:38)
[2018-11-30 07:41] LABS: Albumin Level 2.7 gm/dl (3.4-5.0); BUN Creatinine Ratio 13.4 (10-20); Bilirubin Direct 0.2 mg/dl (0-0.2); Calcium 8.6 mg/dl (8.5-10.1); Est GFR (African American) 120.6; Est GFR (Non-African American) 104.1; Potassium 3.6 mmol/L (3.5-5.1)
[2018-11-30 07:44] LABS: Bilirubin,Total 0.8 mg/dl (0.2-1); Total Protein 6.4 gm/dl (6.4-8.2)
--- NOTE | 2018-11-30 12:06 | Progress Note ---
DATE: 11/30/2018 SUBJECTIVE: A 73-year-old gentleman postop day 3 from IM nailing of a right intertrochanteric fracture. Seems to be doing well. Pain seems to be lessening daily. He seems more positive outlook. No new complaints today. OBJECTIVE: VITAL SIGNS: Temperature is 37.1. Vital signs stable. GENERAL: Physical examination shows a pleasant, middle-aged male. He is lying in bed, looks comfortable. EXTREMITIES: Examination of the right leg reveals the leg lengths to be equal. His incisions are clean, dry and intact. Fairly mild thigh swelling. He is neurologically intact. LABORATORY DATA: Hemoglobin 10.9, hematocrit 32.9. Electrolytes are stable. Creatinine is improved at 3.6. ASSESSMENT: A 73-year-old gentleman with underlying rheumatoid disease, 3 days out from IM nailing of an intertrochanteric fracture. He seems to be doing well. He seems to have more positive outlook on a daily basis. His pain seems to be improving. PLAN: 1. DVT prophylaxis including thigh-high TEDs, SCDs, and baby aspirin twice a day for 6 weeks. 2. PT/OT. He can weightbear as tolerated on the right leg. 3. Medical management as per the medicine service. 4. Disposition: He is orthopedically okay for discharge any time. I need to see him back 2 weeks from surgery date. Any orthopedic questions can be directed to me at [phone].
[2018-11-30] MEDS: MoRPHine SULFATE 4 MG/ML 1 ML CARP\\VIAL IV PRN (13:25)
--- NOTE | 2018-11-30 15:51 | Hospitalist Progress Note ---
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 Pt suffered a mechanical fall onto his R side sustaining an intertrochanteric fracture. He was initially at [facility], however, they do not currently have an orthopedic service so that he was transferred to [facility]. Hip fracture -now status post ORIF on 11/27 by orthopedic surgery Orthopedic management appreciated-doing very well and stable for discharge as per orthopedics Doing very well, is ambulating Postop hemoglobin down to 10.9 from preop of 12 and hemodynamically stable -Continue pain control, bowel regimen DVT prophylaxis with aspirin 81 mg p.o. twice daily x6 weeks PT/OT consultations appreciated- will need rehab placement-awaiting Saturday as insurance authorization needed and insurance company closed over the holiday weekend (2) HTN (hypertension), benign: Blood pressures well controlled -Continue metoprolol tartrate 50 MG p.o. twice daily (3) Hyperlipidemia: With history of CAD -Continue atorvastatin 20 mg daily (4) CAD (coronary artery disease), [place] coronary artery: Status post CABG No evidence of ACS at this time -Continue aspirin, statin, metoprolol -Watch for evidence of perioperative [place]-none so far (5) Status post coronary artery bypass graft: Noted as above (6) Alcohol abuse: Drinks 4-5 mixed drinks daily that each have 2 ounces of vodka. Denies history of previous withdrawal and reports he has stopped for couple months at a time in the past without history of seizures or delirium tremens. Doing very well today Last drink was the evening of 11/26 No evidence of alcohol withdrawal at this time, has not required any Ativan -Continue alcohol withdrawal scale for monitoring -Ativan as needed Banana bag daily x3 days was given -Continue home folic acid 1 mg daily which is actually because he is on methotrexate -Started multivitamin and thiamine supplementation daily (7) Rheumatoid arthritis: Follows with rheumatology -Holding methotrexate currently due to surgery-can likely restart in 2 weeks -Takes chronic Percocet at home as needed for pain (8) Current smoker: Encouraged cessation -Continue nicotine patch once daily -Given chronic productive cough that is annoying him, made guaifenesin with dextromethorphan scheduled every 8 hours -No formal diagnosis of COPD (9) GERD (gastroesophageal reflux disease): No acute issues -Continue Protonix (10) Hypokalemia: Mildly low, was replaced Repeat BMP with normal potassium -No further BMP needed (11) Colostomy present: Noted, he is moving his bowels well into the bag -Continue colostomy care (12) DVT prophylaxis: Aspirin 81 mg twice daily x6 weeks, SCDs Disposition-medically stable, orthopedics says he is stable for discharge at any point-awaiting insurance authorization which will not likely be until Saturday due to the holiday weekend. A referral has been made to [facility] in [place] and [facility] as a back-up. At this point, there is no evidence of alcohol withdrawal and he is medically stable for discharge Subjective Patient feeling well. Still has a productive cough which is chronic. Denies chest pain or shortness of breath. Denies abdominal pain or nausea. Appetite is improved today. His pain is well controlled. He is ambulating with assistance. He is anxious to get out of the hospital. Review of Systems Review of Systems: All systems reviewed & are unremarkable except as noted in HPI & below (He is moving his bowels and making urine) Physical Exam Constitutional: WD/WN, vitals as above Eyes: PERRL, conjunctivae normal, anicteric sclerae Neck: trachea midline, no thyromegaly Respiratory: normal respiratory effort, lungs clear to auscultation normal respiratory effort and + cough; no labored breathing Cardiovascular: RRR, no murmur, no edema Gastrointestinal (Abdomen): normal bowel sounds, soft, nontender, no hepatosplenomegaly Musculoskeletal: Extremities: + extremities abnormal to inspection (Right hip with dressing over the lateral hip clean dry and intact, moving both lower extremities.), no cyanosis and no clubbing Skin: no rashes, warm and dry Neurologic: moves all extremities and awake; no focal motor deficits Psychiatric: A+Ox3, euthymic affect Results & Data Vital Signs (Past 12 Hours) Vital Signs Temp Pulse Resp BP Pulse Ox 11/30/18 15:28 37.0 C 66 16 96/68 L 95 11/30/18 13:45 36.6 C 63 12 97/61 L 95 11/30/18 07:01 37.1 C 69 16 118/68 93 Laboratory Results 11/30/18 11/30/18 Range/Units 06:20 06:20 WBC 9.09 (4.8-10.8) K/uL RBC 3.32 L (4.7-6.1) M/uL Hgb 10.9 L (14.0-18.0) g/dL Hct 32.6 L (42-52) % MCV 98.2 (80-100) fL MCH 32.8 (25-34) pg MCHC 33.4 (32-36) g/dL RDW Std Deviation 57.0 H (36.4-46.3) fL RDW Coeff of Seema 16.0 H (11.5-14.5) % Plt Count 295 (130-400) K/uL MPV 10.4 (7.4-10.4) fL Immature Gran % (Auto) 2.8 % Neut % (Auto) 77.1 % Lymph % (Auto) 8.4 % [place] % (Auto) 9.0 % Eos % (Auto) 1.8 % Baso % (Auto) 0.9 % Immature Gran # (Auto) 0.25 H (0.00-0.02) K/uL Neut # (Auto) 7.02 H (1.4-6.5) K/uL Lymph # (Auto) 0.76 L (1.2-3.4) K/uL [place] # (Auto) 0.82 H (0.11-0.59) K/uL Eos # (Auto) 0.16 (0-0.5) K/uL Baso # (Auto) 0.08 (0-0.2) K/uL Sodium 136 (136-145) mmol/L Potassium 3.6 (3.5-5.1) mmol/L Chloride 101 (98-107) mmol/L Carbon Dioxide 29 (21-32) mmol/L Anion Gap 6.0 (3-11) BUN 8 (7-18) mg/dl Creatinine 0.56 L (0.6-1.4) mg/dl Est Cr Clr Drug Dosing 121.0 ml/min Est GFR ( Amer) 120.6 Est GFR (Non-Af Amer) 104.1 BUN/Creatinine Ratio 13.4 (10-20) Glucose 101 H (70-99) mg/dl Calcium 8.6 (8.5-10.1) mg/dl Total Bilirubin 0.8 (0.2-1) mg/dl Direct Bilirubin 0.2 (0-0.2) mg/dl AST 19 (15-37) U/L ALT 14 (12-78) U/L Alkaline Phosphatase 49 (45-117) U/L Total Protein 6.4 (6.4-8.2) gm/dl Albumin 2.7 L (3.4-5.0) gm/dl
[2018-11-30] MEDS: GUAIFENESIN/DEXTROM SYRUP 100MG/10MG 5ML UDC PO SCH ×2 (16:50→21:32)
[2018-11-30] MEDS: BIMATOPROST 0.01% OP SOLN 2.5 ML BTL OP SCH (20:42)
[2018-11-30] MEDS: DOCUSATE SODIUM/SENNA 50/8.6MG TAB PO SCH (20:48)
[2018-11-30] MEDS: SENNA 8.6 MG TAB PO SCH (20:50)
[2018-12-01] MEDS: OXYCODONE HCL IR 5 MG TAB (IMMEDIATE RELEASE) PO PRN ×4 (03:43→22:18)
[2018-12-01] MEDS: GUAIFENESIN/DEXTROM SYRUP 100MG/10MG 5ML UDC PO SCH ×3 (05:48→22:17)
[2018-12-01] MEDS: NICOTINE 21 MG/24 HR TDSY TD SCH (08:37)
[2018-12-01] MEDS: ASPIRIN 81 MG ECTAB PO SCH ×2 (08:38→20:58)
[2018-12-01] MEDS: MULTIVITAMIN TAB PO SCH (08:38)
[2018-12-01] MEDS: THIAMINE HCL 100 MG TAB PO SCH (08:38)
[2018-12-01] MEDS: ATORVASTATIN 20 MG TAB PO SCH (08:38)
[2018-12-01] MEDS: PANTOprazole 40 MG TAB PO SCH ×2 (08:38→21:01)
[2018-12-01] MEDS: METOPROLOL TARTRATE 50 MG TAB PO SCH ×2 (08:38→21:00)
[2018-12-01] MEDS: FOLIC ACID 1 MG TAB PO SCH (08:39)
--- NOTE | 2018-12-01 08:56 | Progress Note ---
DATE: 12/01/2018 SUBJECTIVE: A 73-year-old gentleman now postop day 4 from IM nailing of a right intertrochanteric fracture. Had a bit more pain last night and a little bit more irritable this morning. No new complaints. No chest pain or shortness of breath. OBJECTIVE: VITAL SIGNS: Temperature 36.7. Vital signs stable. PHYSICAL EXAMINATION: GENERAL: Reveals a thin, elderly male. He is sitting up at his bedside chair, does not particularly look uncomfortable. EXTREMITIES: Examination of the right hip and leg reveals the leg to be well aligned. Not much swelling. He can dorsiflex and plantarflex his foot appropriately. ASSESSMENT: A 73-year-old gentleman with underlying rheumatoid disease, postoperative day 4 from intramedullary nailing of a right intertrochanteric fracture. He looks medically and orthopedically stable. A bit more pain today, which is not too unusual. Symptoms are going to wax and wane these first 2 weeks. PLAN: 1. DVT prophylaxis including thigh-high TEDs, SCDs, and aspirin twice a day. 2. PT/OT. He can weightbear as tolerated. 3. Medical management as per Medicine service. 4. Disposition: He is orthopedically okay for discharge any time. It sounds like the likely discharge will be tomorrow to a rehab or assisted facility.
[2018-12-01] MEDS ORDERED: OXYCODONE HCL IR 5 MG TAB (IMMEDIATE RELEASE) PO STA (10:37)
--- NOTE | 2018-12-01 13:00 | Hospitalist Progress Note ---
Date of Service December 01, 2018 Assessment & Plan (1) Hip fracture: - S/P mechanical fall resulting in R intertrochanteric fx; S/P ORIF on 11/27 - Adjusted pain regimen; maintain bowel regimen - DVT prophylaxis - ASA 81 mg BID x 6 weeks - PT/OT evaluations - planning on rehab pending insurance auth - Orthopedics followed - cleared from their perspective; WBAT (2) HTN (hypertension), benign: - STABLE - Metoprolol 50 mg BID (3) Hyperlipidemia: - Continue atorvastatin 20 mg daily (4) CAD (coronary artery disease), [place] coronary artery: - S/P CABG; stable without signs of ACS - Continue ASA, statin, BB (5) Alcohol abuse: - Reports 4-5 mixed drinks daily with 2 oz vodka; denies H/O previous withdrawal/seizures/delirium tremens - No current signs of withdrawal at this time; last drink 11/26 - Continue AWSS protocol from monitoring; Ativan PRN; Initially given banana bag - Folic acid 1 mg daily; MVI; Thiamine daily (6) Rheumatoid arthritis: - Follows with rheumatology - Holding methotrexate currently due to surgery - can likely restart in 2 weeks - Takes chronic Percocet at home as needed for pain (7) Current smoker: - Continue to encourage cessation; nicotine patch daily - Guaifenesin with Dextromethorphan for cough; no formal diagnosis of COPD Present on Admission?: Yes (8) GERD (gastroesophageal reflux disease): - STABLE - Continue Protonix 40 mg BID (9) Colostomy present: - STABLE; present due to colectomy from diverticulitis - Continue colostomy care (10) DVT prophylaxis: - Aspirin 81 mg BID x 6 weeks, SCDs Disposition: Medically stable; awaiting insurance authorization Subjective Having some increased pain in the hip/thigh today and states the pain medication didn't really touch it today. Did walk and sit in the chair. Did make some dosing adjustments as he did require IV pain medication last night States feeling well overall otherwise. No signs of withdrawal. Anticipating rehab on D/C Review of Systems Constitutional: no fever and no chills Ear, Nose, Mouth, Throat: no dry mouth and no sore throat Respiratory: + cough; no dyspnea Cardiovascular: no chest pain, no palpitations and no edema Gastrointestinal: no abdominal pain, no nausea, no vomiting, no constipation and no diarrhea/loose stools Genitourinary: no dysuria Musculoskeletal: + joint pain (R hip) Integumentary: no rash Psychiatric: no anxiety Physical Exam Constitutional: WD/WN, vitals as above Eyes: + anicteric sclerae; no conjunctival abnormality ENMT: Ears: no hearing impairment Mouth: no oral mucosal abnormality Neck: normal visual inspection and trachea midline Respiratory: normal respiratory effort, lungs clear to auscultation + cough Cardiovascular: RRR, no murmur, no edema Gastrointestinal (Abdomen): Inspection/Auscultation: normal bowel sounds Percussion/Palpation: abdomen soft; abdomen nontender Musculoskeletal: Extremities: + extremities abnormal to inspection (Right hip with dressing C/D/I), no cyanosis and no clubbing Skin: no rashes, warm and dry Neurologic: moves all extremities and awake; no focal motor deficits Psychiatric: A+Ox3, euthymic affect Results & Data Vital Signs (Past 12 Hours) Vital Signs Temp Pulse Resp BP Pulse Ox 12/01/18 07:27 36.7 C 70 16 108/69 90 12/01/18 03:30 36.7 C 62 16 129/74 94
--- NOTE | 2018-12-01 18:19 | XRay Report ---
XR chest 1V portable CLINICAL HISTORY: Cough dyspnea COMPARISON STUDY: 10/28/2017 FINDINGS: Prior median sternotomy. Lungs otherwise appear clear. Mild emphysematous change. Platelike atelectasis left base. IMPRESSION: Platelike atelectasis left base. Mild emphysematous change. The above report was generated using voice recognition software. It may contain grammatical, syntax or spelling errors. Electronically signed by: Harmeet Gaviria M.D. 12/01/2018 6:17 PM
[2018-12-01] MEDS: BIMATOPROST 0.01% OP SOLN 2.5 ML BTL OP SCH (20:58)
[2018-12-01] MEDS: SENNA 8.6 MG TAB PO SCH ×2 (20:59→21:05)
[2018-12-01] MEDS: DOCUSATE SODIUM/SENNA 50/8.6MG TAB PO SCH (21:01)
[2018-12-02] MEDS: OXYCODONE HCL IR 5 MG TAB (IMMEDIATE RELEASE) PO PRN ×5 (03:35→23:36)
[2018-12-02] MEDS: GUAIFENESIN/DEXTROM SYRUP 100MG/10MG 5ML UDC PO SCH ×3 (06:04→20:58)
[2018-12-02] MEDS: METOPROLOL TARTRATE 50 MG TAB PO SCH ×2 (09:02→20:55)
[2018-12-02] MEDS: ATORVASTATIN 20 MG TAB PO SCH (09:02)
[2018-12-02] MEDS: THIAMINE HCL 100 MG TAB PO SCH (09:02)
[2018-12-02] MEDS: PANTOprazole 40 MG TAB PO SCH ×2 (09:02→20:55)
[2018-12-02] MEDS: NICOTINE 21 MG/24 HR TDSY TD SCH (09:02)
[2018-12-02] MEDS: MULTIVITAMIN TAB PO SCH (09:03)
[2018-12-02] MEDS: FOLIC ACID 1 MG TAB PO SCH (09:03)
[2018-12-02] MEDS: ASPIRIN 81 MG ECTAB PO SCH ×2 (09:03→20:55)
[2018-12-02] MEDS: predniSONE 20 MG TAB PO SCH (14:13)
--- NOTE | 2018-12-02 14:25 | Progress Note ---
DATE: 12/02/2018 SUBJECTIVE: A 73-year-old gentleman postop day 5 from IM nailing of a right intertrochanteric fracture. Seems to be a little bit better today. Still has some pain but a little bit better. No new complaints. No chest pain or shortness of breath. OBJECTIVE: VITAL SIGNS: Temperature 36.7. Vital signs stable. GENERAL: Physical examination shows a pleasant 73-year-old gentleman. He is sitting up in bed, looks reasonably comfortable. EXTREMITIES: Examination of the right leg reveals incisions to be clean, dry and intact. A little bruising around the incision sites. Some mild swelling. Leg is well aligned. He is neurologically intact. ASSESSMENT: A 73-year-old gentleman with underlying rheumatoid disease, postop day 5 from IM nailing of a right intertrochanteric fracture. He is doing reasonably well. PLAN: 1. DVT prophylaxis including thigh-high TEDs, SCDs, and we would recommend aspirin twice a day. 2. PT/OT. Weight bear as tolerated. 3. Medical management as per the medicine service. 4. Disposition: He is orthopedically accepted for discharge any time medically stable. I believe, he is going to go for rehab or halfway facility stay. I need to see him back 2 weeks out from surgery date. Any orthopedic questions can be directed to me at [phone].
--- NOTE | 2018-12-02 17:14 | Hospitalist Progress Note ---
Date of Service December 02, 2018 Assessment & Plan (1) Hip fracture: - S/P mechanical fall resulting in R intertrochanteric fx; S/P ORIF on 11/27 - Continue pain regimen; maintain bowel regimen - DVT prophylaxis - ASA 81 mg BID x 6 weeks - PT/OT evaluations - planning on rehab pending insurance auth/bed availability - Orthopedics followed - cleared from their perspective; WBAT (2) HTN (hypertension), benign: - STABLE - Metoprolol 50 mg BID (3) Hyperlipidemia: - Continue atorvastatin 20 mg daily (4) CAD (coronary artery disease), [place] coronary artery: - S/P CABG; stable without signs of ACS - Continue ASA, statin, BB (5) Alcohol abuse: - Reports 4-5 mixed drinks daily with 2 oz vodka; denies H/O previous withdrawal/seizures/delirium tremens - No current signs of withdrawal at this time; last drink 11/26 - Continue AWSS protocol from monitoring; Ativan PRN; Initially given banana bag - Folic acid 1 mg daily; MVI; Thiamine daily (6) Rheumatoid arthritis: - Follows with rheumatology in [place] - Holding methotrexate currently due to surgery - can likely restart in 2 weeks - Takes chronic Percocet at home as needed for pain - Will do Prednisone 20 mg x 5 days for likely some mild exacerbation (7) Current smoker: - Reports last cigarette was approx. 2 months ago; nicotine patch daily - Guaifenesin with Dextromethorphan for cough; no formal diagnosis of COPD (8) GERD (gastroesophageal reflux disease): - STABLE - Continue Protonix 40 mg BID (9) Colostomy present: - STABLE; present due to colectomy from diverticulitis - Continue colostomy care (10) DVT prophylaxis: - Aspirin 81 mg BID x 6 weeks, SCDs Disposition: Medically stable; awaiting bed availability Subjective Reports doing well but continues to have intermittent increased pain. Seems to be worse in the AM and does improve some throughout the day. Possibly multifactorial and maybe some RA flairing. Will do a small course of Prednisone to see if this calms some symptoms. Still agreeing to rehab but awaiting bed availability. Continues to have a productive cough but feels like this is improving some. States he did stop smoking approx. 2 months ago. Review of Systems Constitutional: no fever and no chills Respiratory: + cough and + sputum production; no dyspnea and no wheezing Cardiovascular: no chest pain, no palpitations and no edema Gastrointestinal: no abdominal pain, no nausea, no vomiting, no constipation and no diarrhea/loose stools Genitourinary: no dysuria Musculoskeletal: + joint pain (R hip) Integumentary: no rash Neurologic: no tingling and no numbness Physical Exam Constitutional: WD/WN, vitals as above Eyes: + anicteric sclerae; no conjunctival abnormality ENMT: Ears: no hearing impairment Neck: normal visual inspection and trachea midline Respiratory: normal respiratory effort, lungs clear to auscultation + cough Cardiovascular: RRR, no murmur, no edema Gastrointestinal (Abdomen): Inspection/Auscultation: normal bowel sounds Percussion/Palpation: abdomen soft; abdomen nontender + colostomy Musculoskeletal: Extremities: no cyanosis and no clubbing R hip with mild ecchymosis with multiple dressings C/D/I Skin: no rashes, warm and dry Neurologic: moves all extremities and awake; no focal motor deficits Psychiatric: A+Ox3, euthymic affect Genitourinary: no penis abnormality and no scrotum abnormality Results & Data Vital Signs (Past 12 Hours) Vital Signs Temp Pulse Resp BP BP Pulse Ox 12/02/18 15:30 37.3 C 63 18 98/60 L 97 12/02/18 07:20 36.7 C 61 16 133/73 92
[2018-12-02] MEDS: BIMATOPROST 0.01% OP SOLN 2.5 ML BTL OP SCH (20:57)
[2018-12-02] MEDS: SENNA 8.6 MG TAB PO SCH (21:03)
[2018-12-02] MEDS: DOCUSATE SODIUM/SENNA 50/8.6MG TAB PO SCH (21:03)
[2018-12-03] MEDS: GUAIFENESIN/DEXTROM SYRUP 100MG/10MG 5ML UDC PO SCH ×3 (05:38→21:06)
[2018-12-03] MEDS: predniSONE 20 MG TAB PO SCH (09:05)
[2018-12-03] MEDS: METOPROLOL TARTRATE 50 MG TAB PO SCH ×2 (09:05→21:05)
[2018-12-03] MEDS: FOLIC ACID 1 MG TAB PO SCH (09:05)
[2018-12-03] MEDS: THIAMINE HCL 100 MG TAB PO SCH (09:05)
[2018-12-03] MEDS: ATORVASTATIN 20 MG TAB PO SCH (09:06)
[2018-12-03] MEDS: MULTIVITAMIN TAB PO SCH (09:06)
[2018-12-03] MEDS: ASPIRIN 81 MG ECTAB PO SCH ×2 (09:06→21:05)
[2018-12-03] MEDS: NICOTINE 21 MG/24 HR TDSY TD SCH (09:07)
[2018-12-03] MEDS: PANTOprazole 40 MG TAB PO SCH ×2 (09:07→21:06)
--- NOTE | 2018-12-03 10:42 | Progress Note ---
DATE: 12/03/2018 SUBJECTIVE: A 73-year-old gentleman now 6 days out from IM nailing of a right intertrochanteric fracture. He is doing okay. Pain seems to be a bit better today. He is still looking to go to rehab. He has been denied rehab at [facility] and looking for alternative situations. Mostly a lateral hip pain. He has been up and walking around and pretty optimistic. OBJECTIVE: VITAL SIGNS: Temperature 36.5. Vital signs stable. PHYSICAL EXAMINATION: GENERAL: Shows a pleasant, middle-aged male. He is sitting up in bedside chair, looks pretty comfortable. EXTREMITIES: Examination of the incision reveals them to be clean, dry, and intact. He does have bruising around all the incision sites. Some mild swelling. He is neurologically intact. ASSESSMENT: A 73-year-old gentleman with underlying rheumatoid disease now 6 days out from IM nailing for an intertrochanteric fracture. He is orthopedically doing okay. PLAN: 1. DVT prophylaxis including thigh-high TEDs, SCDs. We recommend aspirin twice a day for 6 weeks. 2. PT/OT, weightbear as tolerated. 3. Medical management as per the medicine service. 4. Disposition: He is orthopedically okay for discharge any time. We are waiting for approval from facility to assist in his care. I need to see him back 2 weeks out from surgery.
[2018-12-03] MEDS: OXYCODONE HCL IR 5 MG TAB (IMMEDIATE RELEASE) PO PRN ×3 (11:22→21:00)
--- NOTE | 2018-12-03 17:07 | Hospitalist Progress Note ---
Date of Service December 03, 2018 Assessment & Plan (1) Hip fracture: - S/P mechanical fall resulting in R intertrochanteric fx; S/P ORIF on 11/27 - Continue pain regimen; maintain bowel regimen - DVT prophylaxis - ASA 81 mg BID x 6 weeks - PT/OT evaluations - planning on rehab pending insurance auth/bed availability - Orthopedics followed - cleared from their perspective; WBAT; plan to see in office 2 weeks postop (December 11) (2) HTN (hypertension), benign: - STABLE - Metoprolol 50 mg BID (3) Hyperlipidemia: - Continue atorvastatin 20 mg daily (4) CAD (coronary artery disease), [place] coronary artery: - S/P CABG; stable without signs of ACS - Continue ASA, statin, BB (5) Alcohol abuse: - Reports 4-5 mixed drinks daily with 2 oz vodka; denies H/O previous withdrawal/seizures/delirium tremens - No current signs of withdrawal at this time; last drink 11/26 - Continue AWSS protocol from monitoring; Ativan PRN; Initially given banana bag - Folic acid 1 mg daily; MVI; Thiamine daily (6) Rheumatoid arthritis: - Follows with rheumatology in [place] - Holding methotrexate currently due to surgery - can likely restart in 2 weeks - Takes chronic Percocet at home as needed for pain - Will do Prednisone 20 mg x 5 days for likely some mild exacerbation (7) Current smoker: - Reports last cigarette was approx. 2 months ago; nicotine patch daily - Guaifenesin with Dextromethorphan for cough; no formal diagnosis of COPD (8) GERD (gastroesophageal reflux disease): - STABLE - Continue Protonix 40 mg BID (9) Colostomy present: - STABLE; present due to colectomy from diverticulitis - Continue colostomy care (10) DVT prophylaxis: - Aspirin 81 mg BID x 6 weeks, SCDs Disposition: Medically stable; due to limited beds in requested facilities patient plans to return home tomorrow - he has been doing well ambulation [place] and could be a good candidate for home therapy Subjective Continues to have intermittent pain but states it is lessened from yesterday but did just ambulate the halls prior to my visit. Feeling well overall. Anticipating going home with home services due to difficulty with finding a bed for rehab. However, patient is ambulating well and is motivated and could be a good candidate for home PT/OT Review of Systems Constitutional: no fever, no chills and no anorexia Respiratory: + cough and + sputum production; no dyspnea and no wheezing Cardiovascular: no chest pain, no palpitations and no edema Gastrointestinal: no abdominal pain, no nausea, no vomiting, no constipation and no diarrhea/loose stools Genitourinary: no dysuria Musculoskeletal: + joint pain (R hip) Integumentary: no rash Physical Exam Constitutional: WD/WN, vitals as above Eyes: + anicteric sclerae; no conjunctival abnormality ENMT: Ears: no hearing impairment Neck: normal visual inspection and trachea midline Respiratory: normal respiratory effort, lungs clear to auscultation Cardiovascular: RRR, no murmur, no edema Gastrointestinal (Abdomen): Inspection/Auscultation: normal bowel sounds Percussion/Palpation: abdomen soft; abdomen nontender Musculoskeletal: Head/Neck/Chest: normocephalic and head atraumatic Extremities: no cyanosis and no clubbing Dressings applied to lateral hip C/D/I Skin: no rashes, warm and dry Neurologic: moves all extremities and awake Psychiatric: A+Ox3, euthymic affect Genitourinary: no penis abnormality and no scrotum abnormality Results & Data Vital Signs (Past 12 Hours) Vital Signs Temp Pulse Pulse Resp BP BP Pulse Ox 12/03/18 15:40 36.7 C 64 16 120/69 97 12/03/18 07:52 36.5 C 62 16 128/76 96
[2018-12-03] MEDS: DOCUSATE SODIUM/SENNA 50/8.6MG TAB PO SCH (21:02)
[2018-12-03] MEDS: SENNA 8.6 MG TAB PO SCH (21:02)
[2018-12-03] MEDS: BIMATOPROST 0.01% OP SOLN 2.5 ML BTL OP SCH (21:06)
[2018-12-04] MEDS: GUAIFENESIN/DEXTROM SYRUP 100MG/10MG 5ML UDC PO SCH ×2 (05:55→12:54)
[2018-12-04] MEDS: OXYCODONE HCL IR 5 MG TAB (IMMEDIATE RELEASE) PO PRN ×2 (07:55→12:54)
[2018-12-04] MEDS: MULTIVITAMIN TAB PO SCH (08:00)
[2018-12-04] MEDS: predniSONE 20 MG TAB PO SCH (08:00)
[2018-12-04] MEDS: ATORVASTATIN 20 MG TAB PO SCH (08:00)
[2018-12-04] MEDS: PANTOprazole 40 MG TAB PO SCH (08:00)
[2018-12-04] MEDS: METOPROLOL TARTRATE 50 MG TAB PO SCH (08:01)
[2018-12-04] MEDS: FOLIC ACID 1 MG TAB PO SCH (08:01)
[2018-12-04] MEDS: NICOTINE 21 MG/24 HR TDSY TD SCH (08:01)
[2018-12-04] MEDS: THIAMINE HCL 100 MG TAB PO SCH (08:02)
[2018-12-04] MEDS: ASPIRIN 81 MG ECTAB PO SCH (08:02)
[2018-12-04 15:42] VITALS: BP 123/66; PULSE 58; TEMP 97.7; O2SAT 94
--- NOTE | 2018-12-04 19:36 | Discharge Summary ---
Date of Service December 04, 2018 Admission HPI Per Admitting Provider 73 y/o M Hx RA, CAD, HTN, HLD, smoker, alcohol abuse. Pt suffered a mechanical fall onto his R side sustaining an intertrochanteric fracture. He was initially at [facility], however, they do not currently have an orthopedic service so that he was transferred to [facility]. He c/o hip pain on arrival. He denies symptoms or intoxication preceding his fall. 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 Surgical: 1) L total shoulder 2018 2) Multiple abdominal surgeries and a colostomy 3) CABG Social: Reports over 3 drinks per day, smokes 1 pack daily Family: Adopted/unknown Principal Diagnosis R Hip Fracture S/P Nailing Discharge Exam Constitutional WD/WN, vitals as above Eyes + anicteric sclerae; no conjunctival abnormality ENMT Ears: no hearing impairment Neck normal visual inspection and trachea midline Respiratory normal respiratory effort, lungs clear to auscultation Cardiovascular RRR, no murmur, no edema Gastrointestinal (Abdomen) Inspection/Auscultation: normal bowel sounds Percussion/Palpation: abdomen soft; abdomen nontender Musculoskeletal Head/Neck/Chest: normocephalic and head atraumatic Extremities: no cyanosis and no clubbing incision site on lateral R hip C/D/I - extensive ecchymosis lateral hip and more prevalent on posterior aspect of RLE Skin no rashes, warm and dry Neurologic moves all extremities Psychiatric A+Ox3, euthymic affect Discharge Data Allergies Allergy/AdvReac Type Severity Reaction Status Date / Time No Known Allergies Allergy Unverified 12/13/17 12:32 Consultations 11/27/18 06:02 Consult Case Management - Discharge Planning Routine 11/27/18 06:08 Consult Orthopedic Surgery Routine 11/27/18 07:26 Consult Case Management - Discharge Planning Routine 11/27/18 14:59 Consult Case Management - Discharge Planning Routine Procedures Performed Operation Date: 11/27/18 12:30 Actual Procedures p Intertrochanteric Nailing Right Hip(Right) - Johnny Sinclair MD Ordered Studies 11/27/18 12:00 FL femur RT 2V Routine FL fluoroscopy <1hr Routine Hospital Course (1) Hip fracture: - S/P mechanical fall resulting in R intertrochanteric fx; S/P ORIF on 11/27 - Percocet 10 mg Q4H PRN - DVT prophylaxis - ASA 81 mg BID x 6 weeks total - Orthopedics followed - WBAT; plan to see in office 2 weeks postop (approx. December 11) - Due to limitations with bed availability - patient planning on returning home with PT/OT (2) HTN (hypertension), benign: - STABLE - Metoprolol 50 mg BID (3) Hyperlipidemia: - Continue atorvastatin 20 mg daily (4) CAD (coronary artery disease), [place] coronary artery: - S/P CABG; stable without signs of ACS - Continue ASA, statin, BB (5) Alcohol abuse: - Reports 4-5 mixed drinks daily with 2 oz vodka; denies H/O previous withdrawal/seizures/delirium tremens - No signs of withdrawal during stay; last drink 11/26 (6) Rheumatoid arthritis: - Follows with rheumatology in [place] - May resume Methotrexate at next scheduled time - Will do Prednisone 20 mg x 5 days total to help as possibly relating to some part of his pain (7) Current smoker: - Reports last cigarette was approx. 2 months ago - No formal diagnosis of COPD but does have a chronic cough (8) GERD (gastroesophageal reflux disease): - STABLE - Continue Protonix 40 mg daily (9) Colostomy present: - STABLE; present due to colectomy from diverticulitis - Continue colostomy care Total Time Total Time Spent Total Time Spent (In Minutes): Greater than 30 minutes Discharge Plan Discharge Items Patient Disposition: Home - Home Health Services Reason For Visit: HIP FRACTURE ALCOHOL WITHDRAWAL Discharge Diagnosis: IM Nail of Right Hip Fracture Discharge Goals: Decrease discomfort, Improve disease control and Therapeutic intervention Activity: Per 'Additional Instructions' section Activity Comment: May weightbear as tolerated on right leg Weightbearing: Right weightbearing Weightbearing Comment: Weightbear as tolerated on right leg. Non-emergency contact: Primary Care Provider Call non-emergency contact if: you have any medication questions, your pain is not controlled and you have a fever Follow-up/Referrals: Johnny Sinclair MD [Surgeon] - (Orthopedic follow-up 2 weeks from surgery date.) Dhruv Howe D.O. [Primary Care Provider] - 12/17/18 11:00 am (An appointment was already scheduled for you with Dr. Zaldivar at [facility] for 12/17 at 11am. The appointment has been updated to be a hospital follow-up. Please call your PCP office with any questions or concerns. ) Diet: Heart Healthy Add Provider Instructions: Hip fracture with Repair - You will be set up with home services to get therapy in your home. We will also give you a prescription for a rolling walker to make walking easier. - You will need to continue aspirin 81 mg twice a day for the next 5 weeks. This is to help prevent blood clots in the legs since you had surgery. Continuing to walk and move helps prevent blood clots as well - You will also be sent home with a prescription for pain medication. Make sure to not drive when using these types of medication. Do not mix alcohol and pain medication. - You can continue to place weight on this leg as tolerated. - Dr. Sinclair, your orthopedic surgeon, would like to see you in his office next week. Our navigator will help set up this appointment Rheumatoid Arthritis: - Recommend to continue to see your arthritis doctor to help keep this under control - We did use a small steroid to help any extra inflammation that could be adding to your pain. -- You had your Prednisone today. You will need to take 20 mg tomorrow (12/05) and then 20 mg on 12/06 - You can continue your Methotrexate as previously prescribed Home Medications: - Continue your home medications as previously prescribed. We did not make adjustments to these. Prescriptions: New aspirin [Ecotrin Low Strength] 81 mg Tablet,Delayed Release (Dr/Ec) 81 mg PO BID 35 Days Qty: 70 RF: 0 prednisone 20 mg Tablet 20 mg PO DAILY 2 Days Qty: 2 RF: 0 oxycodone-acetaminophen 5-325 mg tablet 2 tab PO Q4H PRN (Reason: Pain) 3 Days Qty: 36 RF: 0 Continued atorvastatin 20 mg Tablet 20 mg PO DAILY RF: 0 Lumigan 0.01 % drops 1 drp OPB HS RF: 0 metoprolol tartrate 50 mg tablet 50 mg PO BID RF: 0 pantoprazole 40 mg tablet,delayed release (DR/EC) 40 mg PO DAILY RF: 0 alendronate 70 mg tablet 70 mg PO Q7D RF: 0 folic acid 1 mg tablet 1 mg PO DAILY RF: 0 methotrexate sodium 2.5 mg tablet 12.5 mg PO Q7D RF: 0 Stand-Alone Forms: My [facility], Opioid Pain Management [employer]/Other Patient Handouts: Surgery Prevent DVT After Discharge Orders: Discharge Order (Routine); Ordered 12/04/18 Ordered By: Kayley Graves Admission Data Admit Date/Time: 11/27/18 05:25 Attending Provider: Theresa Clark Admit Provider: Addy Magaña Primary Care Provider: Dhruv Howe Other Providers: Addy Magaña ; Johnny Sinclair Service: Medical Other Interventions: Discharge Summary Assessment (RN) Last Done: 12/04/18 14:32 Pending Studies at Discharge: No DC Date/Time DO NOT enter until pt leaves facility: 12/04/18 17:10 Supervising Physician Co-Signing Physician Notes Attending note: patient seen and examined with Kayley Graves PA-C. I agree with her discharge summary. Patient doing well, pain controlled, going home with therapy. No chest pain, no dyspnea, no vomiting, no diarrhea. - HTN: BP stable on beta david - CAD: continue aspirin, statin, BB, no chest pain - Hip fracture: s/p ORIF, pain well controlled go home with home therapy lives with
== END 2018-12-04 17:10 | disposition home health service (06) | DRG 482 ==
LOC: 2E 05:25 → SUATTDRO 05:25 → 3N 11-28 16:49
DX: W19.XXXA Unspecified fall, initial encounter; E87.6 Hypokalemia; K21.9 Gastro-esophageal reflux disease without esophagitis; H40.9 Unspecified glaucoma; E78.5 Hyperlipidemia, unspecified; Z95.1 Presence of aortocoronary bypass graft; Z93.3 Colostomy status; F10.10 Alcohol abuse, uncomplicated; I10 Essential (primary) hypertension; Z88.5 Allergy status to narcotic agent; Z96.612 Presence of left artificial shoulder joint; Y92.89 Other specified places as the place of occurrence of the external cause; S72.141A Displaced intertrochanteric fracture of right femur, initial encounter for closed fracture; I25.10 Atherosclerotic heart disease of native coronary artery without angina pectoris; M06.9 Rheumatoid arthritis, unspecified; F17.210 Nicotine dependence, cigarettes, uncomplicated